=== PATIENT | female | born 1990 | race African-American/Black ===

== ENCOUNTER 2020-09-23 10:36 | Inpatient (IN) | payer BC ==
[~2020-09-23] VITALS: Ht 170.2 cm; Wt 60.8 kg
--- NOTE | 2020-09-23 11:50 | NUR ---
DIZZINESS (ROOM SPINNING SENSATION) X 4 DAYS. VOMITTED X 1 AM. PT STS HAD AN 08/22/20. PATIENT A/OX4, BREATHING EVEN AND UNLABORED, NO SOB NOTED. ASSISTED TO BED.
[2020-09-23] MEDS ORDERED: MECLIZINE HCL 25 MG TABLET ONE (12:06)
[2020-09-23] MEDS ORDERED: ONDANSETRON HCL/PF 4 MG/2 ML VIAL ONE (12:06)
[2020-09-23 12:19] LABS: BASOPHILS % (AUTO) 0.4 % (0.0-2.0); EOSINOPHILS % (AUTO) 0.7 % (0.0-6.0); HEMATOCRIT 43 % (33-45); HEMOGLOBIN 13.9 g/dL (11.5-14.8); LYMPHOCYTES % (AUTO) 12.3 % (20.0-44.0); MEAN CORPUSCULAR HGB CONC 32 g/dl (31.0-36.0); MEAN CORPUSCULAR VOLUME 88 fL (82-100); MONOCYTES # (AUTO) 0.4 /CMM (0.1-1.30); MONOCYTES % (AUTO) 5.1 % (2.0-12.0); NEUTROPHILS # (AUTO) 6.7 /CMM (1.8-8.9); NEUTROPHILS % (AUTO) 81.5 % (43.0-81.0); PLATELET COUNT (AUTO) 223 /CMM (150-450); RED BLOOD CELL COUNT(AUTO) 4.89 MIL/uL (4.0-5.2); WHITE BLOOD COUNT (AUTO) 8.2 K/uL (4.3-11.0)
--- NOTE | 2020-09-23 12:22 | NUR ---
IV LINE ESTABLISHED, BLOOD DRAWN AND SENT TO LAB.
[2020-09-23 12:26] LABS: CALCIUM, SERUM 9.3 mg/dL (8.5-10.1); CREATININE 0.9 mg/dL (0.6-1.3); POTASSIUM 4.8 mmol/L (3.5-5.1)
[2020-09-23] MEDS ORDERED: MECLIZINE HCL 25 MG TABLET PO ONE (12:30)
[2020-09-23] MEDS ORDERED: ONDANSETRON HCL/PF 4 MG/2 ML VIAL IVP ONE (12:30)
[2020-09-23] MEDS ORDERED: IV NS 0.9% 1,000 ML BAG IV ONE (12:30)
[2020-09-23 12:33] LABS: ALBUMIN 3.9 g/dL (3.4-5.0); BILIRUBIN,DIRECT 0.1 mg/dL (0.0-0.2); BILIRUBIN,TOTAL 0.4 mg/dL (0.2-1.0); TOTAL PROTEIN, SERUM 8.4 g/dL (6.4-8.2)
--- NOTE | 2020-09-23 14:03 | NUR ---
COVID SWAB SENT.
--- NOTE | 2020-09-23 14:55 | NUR ---
us tech at [facility].
--- NOTE | 2020-09-23 15:41 | NUR ---
REPORT GIVEN TO HENNA ERWIN FOR DONAVAN.
--- NOTE | 2020-09-23 15:58 | NUR ---
PATIENT SEEN BY DR. CURTIS AND ORDERED MRI. PATIENT A/OX4, IN STABLE CONDITION. TRANSFERRED TO FLOOR.
--- NOTE | 2020-09-23 16:00 | NUR ---
RN NOTE RECEIVED PT INTO ROOM 306-1. AWAKE IN BED. A/O X4 AND TANZANIAN SPEAKING. NO COMPLAINT OF PAIN OR NAUSEA. SEVERE DIZZINESS NOTED. ON RA WITH NO SOB OR RESPIRATORY DISTRESS PRESENT. NO TYPE CASTING MACHINE OPERATOR PRESENT. NO EDEMA PRESENT. SELF AMBULATORY. SKIN IS INTACT. NO EDEMA PRESENT. IV PRESENT ON L AC 20G AND FLUSHES WELL. LABS REVIEWED. SAFETY MEASURES IN PLACE. SIDE RAILS RAISED. BED LOWERED. CALL LIGHT WITHIN REACH. WILL CONTINUE TO MONITOR.
--- NOTE | 2020-09-23 16:30 | NUR ---
RN NOTE PT BROUGHT TO MRI WITH TRANSPORTER. CHECKLIST REVIEWED FOR METALS. CONSENT SIGNED.
[2020-09-23] MEDS ORDERED: Z GUARD REMEDY 2 OZ OINT TP PRN (17:00)
[2020-09-23] MEDS ORDERED: ZOLPIDEM TARTRATE 5 MG TABLET PO PRN (17:00)
[2020-09-23] MEDS ORDERED: MAGNESIUM HYDROXIDE 30 ML UDC PO PRN (17:00)
[2020-09-23] MEDS ORDERED: MAG HYDROX/AL HYDROX/SIMETH 30 ML UDC PO PRN (17:00)
[2020-09-23] MEDS ORDERED: ACETAMINOPHEN 325 MG TABLET PO PRN (17:00)
[2020-09-23] MEDS ORDERED: IV NS 0.9% 1,000 ML IV PRN (17:00)
[2020-09-23] MEDS ORDERED: ONDANSETRON HCL/PF 4 MG/2 ML VIAL IVP PRN (17:00)
--- NOTE | 2020-09-23 18:15 | NUR ---
RN CLOSING NOTE AWAKE IN BED. A/O X4 AND INDIAN SPEAKING. NO COMPLAINT OF PAIN OR NAUSEA. SEVERE DIZZINESS NOTED. ON RA WITH NO SOB OR RESPIRATORY DISTRESS PRESENT. NO ELEMENTARY SCHOOL SCIENCE TEACHER PRESENT. NO EDEMA PRESENT. SELF AMBULATORY. SKIN IS INTACT. NO EDEMA PRESENT. IV PRESENT ON L AC 20G AND FLUSHES WELL. NS RUNNING AT 75 ML/HR. LABS REVIEWED. SAFETY MEASURES IN PLACE. SIDE RAILS RAISED. BED LOWERED. CALL LIGHT WITHIN REACH. REPORT TO BE GIVEN TO NIGHT NURSE FOR DONAVAN.
--- NOTE | 2020-09-23 19:30 | NUR ---
MS RN OPENING NOTES RECEIVED PATIENT IN BED, ASLEEP, NOT IN ANY FORM OF ACUTE DISTRESS NOTED. EASILY AWAKEN BY VERBAL AND TACTILE STIMULI. VS WITHIN NORMAL LIMITS. WITH AN ONGOING IVF OF NS 1L X 75 CC/HR INFUSING WELL ON PATIENT'S LEFT AC. NO REDNESS, NO INFILTRATION NOTED. NO S/SX OF PAIN NOTED AT THIS TIME, NO COMPLAINTS OF N/V, DIZZINESS AT THIS TIME. SAFETY PRECAUTIONS OBSERVED: BED ON LOWEST LOCKED POSITION, SIDE RAILS UP X2. KEPT CALL LIGHT WITHIN EASY REACH. WILL CONTINUE TO MONITOR PATIENT'S STATUS.
[2020-09-23 20:00] VITALS: BP 118/70
--- NOTE | 2020-09-24 06:37 | NUR ---
MS RN CLOSING NOTES PATIENT IN BED, AWAKE, A&O X 4, NOT IN ANY FORM OF ACUTE DISTRESS NOTED. VS WITHIN NORMAL LIMITS.IVF OF NS 1L X 75 CC/HR INFUSING WELL ON PATIENT'S LEFT AC. NO REDNESS, NO INFILTRATION NOTED. ON RA TOLERATING WELL, NO SOB NOTED. NO COMPLAINTS OF PAIN, N/V, DIZZINESS AT THIS TIME. SAFETY PRECAUTIONS OBSERVED AND MAINATINED DURING THE SHIFT: BED ON LOWEST LOCKED POSITION, SIDE RAILS UP X2. KEPT CALL LIGHT WITHIN EASY REACH. ENDORSED TO MORNING NURSE FOR CONTINUITY OF CARE.
[2020-09-24 06:50] LABS: BASOPHILS % (AUTO) 0.5 % (0.0-2.0); EOSINOPHILS % (AUTO) 1.7 % (0.0-6.0); HEMATOCRIT 42 % (33-45); HEMOGLOBIN 13.6 g/dL (11.5-14.8); LYMPHOCYTES # (AUTO) 1.7 /CMM (0.8-4.8); LYMPHOCYTES % (AUTO) 24.2 % (20.0-44.0); MEAN CORPUSCULAR HGB CONC 32 g/dl (31.0-36.0); MEAN CORPUSCULAR VOLUME 88 fL (82-100); MONOCYTES # (AUTO) 0.5 /CMM (0.1-1.30); MONOCYTES % (AUTO) 7.7 % (2.0-12.0); NEUTROPHILS # (AUTO) 4.6 /CMM (1.8-8.9); NEUTROPHILS % (AUTO) 65.9 % (43.0-81.0); PLATELET COUNT (AUTO) 225 /CMM (150-450); RED BLOOD CELL COUNT(AUTO) 4.79 MIL/uL (4.0-5.2); WHITE BLOOD COUNT (AUTO) 6.9 K/uL (4.3-11.0)
[2020-09-24 07:19] LABS: CALCIUM, SERUM 8.3 mg/dL (8.5-10.1); CREATININE 0.8 mg/dL (0.6-1.3); MAGNESIUM 2.4 mg/dL (1.8-2.4); PHOSPHORUS 3.5 mg/dL (2.5-4.9); POTASSIUM 3.6 mmol/L (3.5-5.1)
[2020-09-24 07:44] LABS: THYROID STIMULATING HORMONE 1.239 uIU/mL (0.358-3.74)
[2020-09-24 08:08] VITALS: BP 100/60
--- NOTE | 2020-09-24 10:40 | NUR ---
tramaine davies psych np in and spoke with pt.
--- NOTE | 2020-09-24 11:00 | NUR ---
pt. verbalized to kaylee distance education coordinator that 80% of dizziness gone.
[2020-09-24] MEDS ORDERED: prednisoLONE 5 MG/5 ML UDC PO ONE (12:00)
--- NOTE | 2020-09-24 14:10 | NUR ---
dr. morton here and spent time with ptjoe'анна hein today.
[2020-09-24] MEDS ORDERED: MECL-225 PO (15:57)
[2020-09-24] MEDS ORDERED: PRED20TA GT (15:57)
--- NOTE | 2020-09-24 16:00 | NUR ---
tramaine davies arranging for dc today.pt. agreeable.
[2020-09-24 16:07] VITALS: BP 108/66
--- NOTE | 2020-09-24 17:30 | NUR ---
urine obtained for test and sent to lab.
--- NOTE | 2020-09-24 18:00 | NUR ---
given all dc instructions.hep lock out. belonging sheet signed.awaiting ride.
--- NOTE | 2020-09-24 19:00 | NUR ---
pt. endorsed to eve. dorsey that pt. is waiting for transportation.
--- NOTE | 2020-09-24 19:56 | NUR ---
MS/RN OPENING/DISCHARGE NOTE RECEIVED PATIENT SITTING IN CHAIR. AWAKE, ALERT AND ORIENTED X 4. ABLE TO MAKE NEEDS KNOWN. NO COMPLAINTS OF PAIN AT THIS TIME. PATIENT IS BEING DISCHARGED HOME WITH FRIEND PICKING HER UP. NO IV ACCESS AT THIS TIME. ID BAND REMOVED. BELONGINGS LIST REVIEWED AND SIGNED. ALL DISCHARGE PAPERWORK REVIEWED AND SIGNED. VS AT DISCHARGE: BP 110/69 HR 95 RR 18 T 97.8 O2 SAT 98% ON ROOM AIR. PATIENT BEING DISCHARGED WITH ALL BELONGINGS. ID BAND REMOVED. PATIENT ASSISTED TO LOBBY VIA STAFF MEMBER AT APPROX. [id number].
== END 2020-09-24 19:58 | disposition home or self-care (01) | DRG 149 ==
LOC: ER 10:40 → MED 15:23
PROVIDERS: ADMIT Registered Nurse; ATTEND Registered Nurse
DX: H81.10 Benign paroxysmal vertigo, unspecified ear (principal); Z87.59 Personal history of other complications of pregnancy, childbirth and the puerperium; N93.8 Other specified abnormal uterine and vaginal bleeding; Z20.822 Contact with and (suspected) exposure to COVID-19
CPT/HCPCS: 36415; 70551-TC; 76856-TC; 80048-TC; 80061-TC; 80076-TC; 83690-TC; 83735-TC; 84100-TC; 84443-TC; 84702-TC; 84703-TC; 85025-TC; 87081-TC; G0378; J2405; J7030; J7510; J8597